=== PATIENT | female | born 1980 | race Caucasian/White ===

== ENCOUNTER 2020-06-20 13:07 | Emergency (ER) | payer MEDICAID, OTHER ==
[~2020-06-20] VITALS: Ht 167.6 cm; Wt 59.0 kg
[2020-06-20 13:17] VITALS: BP 116/72
[2020-06-20] MEDS ORDERED: MAGNESIUM/ALUMINUM HYDROXIDE/SIMETHICONE 30ML UDC PO STA (13:46)
[2020-06-20] MEDS ORDERED: ONDANSETRON 4MG ODT PO STA (13:46)
[2020-06-20] MEDS ORDERED: DICYCLOMINE 10 MG/5 ML ORAL SYR PO STA (13:46)
[2020-06-20 15:36] LABS: BASOPHILS % 1.4 % (0.0-2.0); EOSINOPHILS % 0.1 % (0.0-5.0); HEMATOCRIT. 36.1 % (36.0-48.0); HEMOGLOBIN. 11.9 g/dL (12.0-16.0); LYMPHOCYTES % 27.6 % (20.0-50.0); MEAN CORPUSCULAR HEMOGLOBIN 30.7 pg (28.0-32.0); MEAN CORPUSCULAR VOLUME 93.3 fL (81.0-99.0); MEAN PLATELET VOLUME 8.5 fl (7.4-10.4); MONOCYTES % 7.7 % (2.0-8.0); NEUTROPHILS % 63.2 % (40.0-76.0); PLATELET 257 x1000/uL (130-400); RED BLOOD CELL COUNT 3.87 mill/uL (4.2-5.4)
[2020-06-20 15:47] LABS: CHLORIDE 106 mEq/L (98-107)
[2020-06-20 15:51] LABS: HCG SCREEN NEGATIVE
[2020-06-20 15:52] LABS: ETHANOL BLOOD < 10 mg/dL
== END 2020-06-20 15:35 | disposition home or self-care (01) ==
LOC: ER 13:07
DX: R53.1 Weakness (principal); R42 Dizziness and giddiness; Z88.0 Allergy status to penicillin; Z59.0 Homelessness; Z98.890 Other specified postprocedural states
CPT/HCPCS: 36415; 80053; 80320; 83690; 84703; 85025; 93005; 99284; Q0162; G0480